=== PATIENT | female | born 1975 | race Caucasian/White ===

== ENCOUNTER 2022-04-26 10:24 | Emergency (ER) | payer OTHER ==
[~2022-04-26] VITALS: Ht 167.6 cm; Wt 120.2 kg
[2022-04-26] MEDS ORDERED: CHLORTHALIDONE25 MG PO (10:30)
[2022-04-26] MEDS ORDERED: ST. JOSEPH ASPI81 M2 PO (10:30)
[2022-04-26] MEDS ORDERED: LOSARTAN POTASS50 MG PO (10:30)
[2022-04-26] MEDS ORDERED: XIGDUO XR 10 M1 EAC1 PO (10:30)
[2022-04-26] MEDS ORDERED: PEPCID AC20 MG PO (18:03)
[2022-04-26] MEDS ORDERED: CARAFATE1 GM PO (18:03)
== END 2022-04-26 18:15 | disposition home or self-care (01) ==
LOC: ER 10:24
DX: R10.9 Unspecified abdominal pain (principal); K21.9 Gastro-esophageal reflux disease without esophagitis; K42.9 Umbilical hernia without obstruction or gangrene